=== PATIENT | male | born 1985 | race Caucasian/White ===

== ENCOUNTER 2017-05-28 23:57 | Emergency (ER) | payer SELFPAY ==
[~2017-05-28] VITALS: Ht 167.6 cm; Wt 100.0 kg
[~2017-05-28 23:57] MED LIST: AMOX250C4 PO; METH10 PO
[2017-05-29] MEDS ORDERED: ALPR1TAB7 PO (00:17)
[2017-05-29] MEDS ORDERED: IBUPROFEN 800 MG TABLET PO ONE (00:30)
[2017-05-29] MEDS ORDERED: BACITRACIN 0.9 GM PACKET OINTMENT TP ONE (00:30)
[2017-05-29 01:37] VITALS: BP 129/83
== END 2017-05-29 01:42 | disposition home or self-care (01) ==
LOC: EMS 23:58
DX: S01.80XA Unspecified open wound of other part of head, initial encounter (principal); I10 Essential (primary) hypertension; F12.90 Cannabis use, unspecified, uncomplicated; F17.210 Nicotine dependence, cigarettes, uncomplicated; Y04.0XXA Assault by unarmed brawl or fight, initial encounter; Y93.89 Activity, other specified; Y92.89 Other specified places as the place of occurrence of the external cause; Y99.8 Other external cause status
CPT/HCPCS: 12011; 99283

== ENCOUNTER 2025-04-29 10:44 | Emergency (ER) | payer MEDICAID ==
[~2025-04-29] VITALS: Ht 165.1 cm; Wt 102.3 kg
[~2025-04-29 10:44] MED LIST changes: +ALPR-709 PO; -AMOX250C4 PO; +SULF1TAB42
[2025-04-29 10:58] VITALS: TEMP 98.1
[2025-04-29 11:09] VITALS: BP 124/72; PULSE 68; RESP 18; O2SAT 98
== END 2025-04-29 12:07 | disposition home or self-care (01) ==
LOC: EMS 10:44
DX: F19.20 Other psychoactive substance dependence, uncomplicated (principal); E11.9 Type 2 diabetes mellitus without complications; I10 Essential (primary) hypertension; F17.210 Nicotine dependence, cigarettes, uncomplicated; F11.90 Opioid use, unspecified, uncomplicated; Z98.890 Other specified postprocedural states; Z79.899 Other long term (current) drug therapy
CPT/HCPCS: 99282; Z7502